=== PATIENT | female | born 1955 | race African-American/Black ===

== ENCOUNTER 2016-11-05 07:02 | Day surgery (SDC) | payer OTHER ==
[2016-11-05] MEDS ORDERED: TETRACAINE 0.5% OPHTH 1 DOSE AFFEYE ONE ×2 (07:30→08:05)
[2016-11-05] MEDS ORDERED: AK-DILATE 2.5% OPHTH 1 DOSE OP ONE ×3 (07:35→07:45)
[2016-11-05] MEDS ORDERED: MYDRIACIL OPHTH 1 DOSE AFFEYE ONE ×3 (07:35→07:45)
[2016-11-05 08:52] VITALS: BP 142/72
== END 2016-11-05 08:20 | disposition home or self-care (01) ==
LOC: SURG1 07:02
PROVIDERS: ATTEND Ophthalmology
PROC: 085E3ZZ Destruction of Right Retina, Percutaneous Approach (ICD-10-PCS; principal; 2016-11-05 08:15)
DX: E11.311 Type 2 diabetes mellitus with unspecified diabetic retinopathy with macular edema (principal)